=== PATIENT | female | born 1980 | race Caucasian/White ===

== ENCOUNTER 2025-03-13 15:59 | Emergency (ER) | payer MEDICAID ==
[~2025-03-13] VITALS: Ht 152.4 cm; Wt 52.3 kg
[2025-03-13 16:25] VITALS: BP 144/103; PULSE 101; RESP 16; O2SAT 99
--- NOTE | 2025-03-13 16:52 | Physician Documentation ---
History of Present Illness ~ Chief Complaint: Medical Clearance Stated Complaint: MEDICAL CLEARANCE Time Seen by MD: 16:28 OK to notify your PCP?: Yes Source: patient, family, RN/MD HPI Patient is seen today with complaints of alcohol, meth andmiting, diarrhea. Patient has no other concern or complaint at this time. She states her last use of alcohol heroin and meth was about an hour ago. heroin abuse. Patient states she is trying to go [facility] and needs med clearance. Patient denies any chest pain or shortness of breath or abdominal pain or nausea, vomiting, diarrhea. She has no other concern or complaint at this time. Medication Reconciliation Allergies: Uncoded Allergies: SULFA (Allergy, Intermediate, HIVES, 03/13/25) Review of Systems Constitutional: Denies: chills, fever, weakness Eyes: Denies: pain, blurred vision ENT: Denies: ear pain, nose pain, throat pain, mouth pain Respiratory: Denies: cough, shortness of breath Cardiovascular: Denies: chest pain, palpitations Gastrointestinal: Denies: abdominal pain, nausea, vomiting Genitourinary: Denies: burning, dysuria Female Genitalia: Denies: vaginal discharge, pelvic pain Neurological: Denies: headache, dizziness Musculoskeletal: Denies: pain, swelling Integumentary: Denies: rash, lesions Allergic/Immunologic: Denies: hives, itching Hematologic/Lymphatic: Denies: no symptoms reported Psychiatric: Denies: depression, anxiety Physical Exam Vital Signs: Temperature: 97.5, Source: Temporal, Heart Rate: 101, Respiratory Rate: 16, BP: 144/103, Pulse Oximetry: 99, Weight: 52.270 Oxygen Flow Rate: 0 Physical Exam General: Awake and Alert, no acute distress. HEENT: Conjunctiva pink, Sclera clear, Mucus Membranes moist. Neck: Supple without masses and tenderness. Resp: Unlabored. Lungs clear to auscultation bilaterally. Heart: Regular Rate and rhythm, normal S1 and S2 without murmur, rub or gallop. Abdomen: Soft and non tender no organomegaly Extremities: No cyanosis,clubbing or edema. Skin: Warm and Dry. Progress Results/Orders Results/Orders Vital Signs 03/13/25 16:25 Temp 97.5 Pulse 101 Resp 16 B/P (MAP) 144/103 Pulse Ox 99 O2 Flow Rate 0 Medical Decision Making Findings Patient is seen today with complaints of alcohol, meth andmiting, diarrhea. Patient has no other concern or complaint at this time. She states her last use of alcohol heroin and meth was about an hour ago. heroin abuse. Patient states she is trying to go [facility] and needs med clearance. Patient denies any chest pain or shortness of breath or abdominal pain or nausea, vomiting, diarrhea. She has no other concern or complaint at this time. Patient was given Librium taper as well as comfort meds for coming down off heroin. Patient will take them as prescribed. Patient is medically cleared for entrance into [facility]. Patient will return to the ED with any worsening, concerning or changing symptoms. Departure Disposition: 01 HOME / SELF CARE / HOMELESS Impression: Primary Impression: Heroin abuse Additional Impressions: Methamphetamine abuse Alcohol abuse Discharge Instructions: Medical Screening Exam Additional Instructions: Patient was given Librium taper as well as comfort meds for coming down off heroin. Patient will take them as prescribed. Patient is medically cleared for entrance into [facility]. Patient will return to the ED with any worsening, concerning or changing symptoms. Referrals: NO PRIMARY CARE PROVIDER (PCP) Prescriptions Loperamide Hcl (Loperamide) 2 Mg Capsule 2 CAP PO Q6H for loose stool for 5 Days, #40 CAP 0 Refills Prov: CHUY CARRANZA 03/13/25 Tizanidine Hcl (Zanaflex) 2 Mg Tablet 1-2 TAB PO TID for 7 Days, #42 TAB 0 Refills Prov: CHUY CARRANZA 03/13/25 ONDANSETRON ODT 4mg tablet (ONDANSETRON ODT) 4 Mg Tab.rapdis 8 MG PO BID for 7 Days, #28 TAB Prov: CHUY CARRANZA 03/13/25 Chlordiazepoxide Hcl (Librium) 25 Mg Capsule 1-2 CAP PO Q4H PRN for anxiety for 5 Days, #24 CAP 0 Refills Prov: CHUY CARRANZA 03/13/25 Signature Scribe Signature: No scribe Attestation: No scribe CHUY CARRANZA Mar 13, 2025 16:51
[2025-03-13] MEDS ORDERED: ONDA-243 PO (17:01)
[2025-03-13] MEDS ORDERED: LOPE2CAP PO (17:01)
[2025-03-13] MEDS ORDERED: TIZA-189 PO (17:01)
[2025-03-13] MEDS ORDERED: CHLO25CA10 PO (17:01)
[2025-03-13 17:15] VITALS: TEMP 97.5
== END 2025-03-13 17:16 | disposition home or self-care (01) ==
LOC: ER 16:01
DX: F10.10 Alcohol abuse, uncomplicated (principal); F11.10 Opioid abuse, uncomplicated; F15.10 Other stimulant abuse, uncomplicated; R19.7 Diarrhea, unspecified; Y90.9 Presence of alcohol in blood, level not specified
CPT/HCPCS: 99283